=== PATIENT | male | born 1975 | race African-American/Black ===

== ENCOUNTER 2019-07-05 13:17 | Outpatient (CLI) | payer BC ==
--- NOTE | 2019-07-05 14:13 | RAD ---
EXAM: XR Lumbar Spine 2 Or 3 View PROVIDED CLINICAL HISTORY: Back pain COMPARISON: None FINDINGS: 5 nonrib-bearing lumbar-type vertebral bodies are present. Lumbar alignment appears normal. Vertebral body heights appear preserved. Pedicles appear intact. IMPRESSION: Unremarkable lumbar spine radiographs.
== END 2019-07-05 13:18 | disposition home or self-care (01) ==
LOC: NAV RAD 13:17
PROVIDERS: ATTEND Family Medicine
DX: M54.32 Sciatica, left side (principal)
CPT/HCPCS: 72100